=== PATIENT | female | born 1985 | race Caucasian/White ===

== ENCOUNTER → 2017-04-12 | Outpatient (CLI) | payer BC, MEDICAID ==
[2017-04-12 09:18] LABS: CH 30.8; CHCM 32.2; HCT 40.6 % (34.0-46.0); MCH 30.7 pg (25.0-35.0); MCV 96.2 fL (80.0-100.0); Mean Platelet Volume 8.4; RBC 4.22 m/uL (3.80-5.40); RDW 14.4 % (11.5-15.5); WBC 9.7 k/uL (3.8-10.6)
--- NOTE | 2017-04-12 09:35 | US ---
EXAMINATION TYPE: US OB <= 14 wk fetus DATE OF EXAM: 04/12/2017 COMPARISON: NONE CLINICAL HISTORY: Z36 Confirm dates. Confirm Dates, pt has no complaints at this time EXAM PERFORMED: Transabdominal (TA) EXAM MEASUREMENTS: GESTATIONAL AGE / DATING Physician Established: (11 weeks/0 days) EDC: 11/01/2017 Dates by LMP: (11 weeks/0 days) EDC: 11/01/2017 Dates by First Scan: No Prior Dates by Current Scan for: (11 weeks/6 days) EDC: 10/26/2017 MATERNAL ANATOMY Uterus: 12.9 x 8.9 x 10.2 cm Right Ovary: 3.4 x 1.6 x 2.1 cm Left Ovary: 3.3 x 1.7 x 2.4 cm Post CDS / Adnexa: wnl Presence of free fluid: No Presence of subchorionic bleed: No GESTATION / SURVEY CRL: 5.1 cm (11 weeks/6 days) MSD: wnl Heart Rate: 161 bpm Rhythm: Normal IUP: Viable IUP Nuchal Translucency 10-14wks (normal less than 3mm): 1mm IMPRESSION:Single, viable IUP/ No abnormality seen at this time
[2017-04-12 09:39] LABS: Glucose 58 mg/dL (74-99); Non-African American GFR(MDRD) >60 (>60 ml/min/1.73 sqM)
[2017-04-12 18:07] LABS: Treponemal Ab Non-Reactive (Non-Reactive)
== END | disposition home or self-care (01) ==
LOC: RADUSWWP 08:24
PROVIDERS: ATTEND Obstetrics & Gynecology
DX: Z36.9 Encounter for antenatal screening, unspecified (principal); O26.811 Pregnancy related exhaustion and fatigue, first trimester
CPT/HCPCS: 36415; 76801; 76813; 82565; 82947; 85027; 86762; 86780; 86850; 86900; 86901; 87340; 87390

== ENCOUNTER → 2017-06-07 | Outpatient (CLI) | payer MEDICAID ==
--- NOTE | 2017-06-07 11:56 | US ---
EXAMINATION TYPE: US OB anatomy transabd DATE OF EXAM: 06/07/2017 COMPARISON: 04/12/2017 HISTORY: O36.62X0 LARGE FOR DATES TECHNIQUE: Transabdominal (TA) EXAM MEASUREMENTS: GESTATIONAL AGE / DATING Physician Established: (19 weeks/0 days) EDC: 11/01/2017 Dates by LMP: 19 weeks 0 days EDC: 11/01/2017 Dates by First Scan: (20 weeks/0 days) EDC: 10/26/2017 Dates by Current Scan for: (19 weeks/5 days) EDC: 10/27/2017 SURVEY IUP: Single PLACENTA: Anterior PREVIA: No previa CORINA: 13.6 cm CERVICAL LENGTH (transabdominal: norm > 3.0cm): 3.1 cm BIOMETRY PRESENTATION: Breech LIE: Oblique BPD: 4.6 cm 19 weeks / 6 days HC: 17.3 cm 19 weeks / 6 days AC: 15.2 cm 20 weeks / 3 days FL: 3.1 cm 19 weeks / 3 days ESTIMATED WEIGHT IN GRAMS: 324 grams ESTIMATED WEIGHT IN LBS/OZ: 0 lbs. 11 oz. WEIGHT PERCENTAGE BASED ON ESTABLISHED DATE: 93 % HC/AC: 1.1 Normal FL/AC: 20 Normal HEART RATE: 145 bpm RHYTHM: Normal ANATOMY SEEN (within normal limits): * Lateral Vent (< 1 cm) 0.6 cm * Cisterna Magna (< 1.1 cm) 0.4 cm * Nuchal Fold (< 0.6 cm) 0.5 cm * Cerebellum (varies with age) 2.3 cm Choroid Plexus (bilateral) Midline Falx Cavus Septi Pellucidi Four Chamber Heart Outflow tracts: LVOT/RVOT Stomach Situs Nose / Lips Diaphragm Kidneys (bilateral) Bladder Cord Insert Three Vessel Cord Longitudinal Spine Transverse Spine Arms (bilateral) Legs (bilateral) IMPRESSION: Single viable 19 weeks gestation by ultrasound; normal growth parameters
== END | disposition home or self-care (01) ==
LOC: RADUSWWP 09:40
PROVIDERS: ATTEND Obstetrics & Gynecology
DX: O36.62X0 Maternal care for excessive fetal growth, second trimester, not applicable or unspecified (principal); Z3A.19 19 weeks gestation of pregnancy
CPT/HCPCS: 76811

== ENCOUNTER → 2017-07-26 | Outpatient (CLI) | payer MEDICAID ==
[2017-07-26 10:13] LABS: HGB 12.3 gm/dL (11.4-16.0); MCH 31.3 pg (25.0-35.0); MCHC 33.3 g/dL (31.0-37.0); MCV 93.9 fL (80.0-100.0); Mean Platelet Volume 8.1; Platelet Count 168 k/uL (150-450); RBC 3.94 m/uL (3.80-5.40); WBC 12.1 k/uL (3.8-10.6)
== END | disposition home or self-care (01) ==
LOC: LABWHC1 08:53
PROVIDERS: ATTEND Obstetrics & Gynecology
DX: Z34.82 Encounter for supervision of other normal pregnancy, second trimester (principal); Z34.00 Encounter for supervision of normal first pregnancy, unspecified trimester
CPT/HCPCS: 36415; 82950; 85027

== ENCOUNTER → 2017-09-21 | Outpatient (CLI) | payer MEDICAID ==
--- NOTE | 2017-09-22 08:19 | US ---
EXAMINATION TYPE: US OB >= 14 wk fetus DATE OF EXAM: 09/21/2017 COMPARISON: US CLINICAL HISTORY: O36.63X0 Large for dates 3rd trimester TECHNIQUE: Transabdominal (TA) GESTATIONAL AGE / DATING Physician Established: (34 weeks/1 days) EDC: 11/01/2017 Dates by LMP: (34 weeks/1 days) EDC: 11/01/2017 Dates by First Scan: (35 weeks/0 days) EDC: 10/26/2017 Dates by Current Scan: (37 weeks/0 days) EDC: 10/12/2017 SURVEY IUP: Single PLACENTA: Anterior PREVIA: No Previa CORINA: 12.3 cm Normal CERVICAL LENGTH (transabdominal: norm > 3.0cm): 4.3 cm BIOMETRY PRESENTATION: Vertex BPD: 9.3 cm 37 weeks / 4 days HC: 33.2 cm 37 weeks / 6 days AC: 33.6 cm 37 weeks / 4 days FL: 7.2 cm 36 weeks / 5 days ESTIMATED WEIGHT IN GRAMS: 3194 grams ESTIMATED WEIGHT IN LBS/OZ: 7 lbs. 1 oz. WEIGHT PERCENTAGE BASED ON ESTABLISHED DATES: >97% HC/AC: 0.99 Normal FL/AC: 21.3 Normal HEART RATE: 137 bpm RHYTHM: Normal LGA, patient measures 37 weeks 0 days. IMPRESSION: LGA, patient measures 37 weeks 0 days.
== END | disposition home or self-care (01) ==
LOC: RADUSWWP 16:40
PROVIDERS: ATTEND Obstetrics & Gynecology
DX: O36.63X0 Maternal care for excessive fetal growth, third trimester, not applicable or unspecified (principal); Z3A.37 37 weeks gestation of pregnancy
CPT/HCPCS: 76805

== ENCOUNTER → 2017-10-18 | Outpatient (CLI) | payer MEDICAID ==
--- NOTE | 2017-10-18 11:49 | US ---
EXAMINATION TYPE: US OB >= 14 wk fetus DATE OF EXAM: 10/18/2017 COMPARISON: US 04/12/2017, US 06/07/2017, US 09/21/2017 CLINICAL HISTORY: O36.63XO Maternal care for excessive growth, Growth TECHNIQUE: Transabdominal (TA) GESTATIONAL AGE / DATING Physician Established: (38 weeks/0 days) EDC: 11/01/2017 Dates by LMP: (38 weeks/0 days) EDC: 11/01/2017 Dates by First Scan: (38 weeks/6 days) EDC: 10/26/2017 Dates by Current Scan: (38 weeks/3 days) EDC: 10/29/2017 SURVEY IUP: Single PLACENTA: Anterior PREVIA: No Previa CORINA: 13.8 cm Normal CERVICAL LENGTH (transabdominal: norm > 3.0cm): 3.2 cm BIOMETRY PRESENTATION: Vertex LIE: Longitudinal BPD: 9.58 cm 39 weeks / 1 days HC: 34.47 cm 39 weeks / 6 days AC: 34.58 cm 38 weeks / 3 days FL: 7.45 cm 38 weeks / 1 days ESTIMATED WEIGHT IN GRAMS: 3552 grams ESTIMATED WEIGHT IN LBS/OZ: 7 lbs. 13 oz. WEIGHT PERCENTAGE BASED ON ESTABLISHED DATES: 77.8% HC/AC: 1.00 Normal FL/AC: 21.55 Normal HEART RATE: 153 bpm RHYTHM: Normal IMPRESSION: Viable IUP, measurements consistent with established dates.
== END | disposition home or self-care (01) ==
LOC: RADUSWWP 09:00
PROVIDERS: ATTEND Obstetrics & Gynecology
DX: O36.63X0 Maternal care for excessive fetal growth, third trimester, not applicable or unspecified (principal); Z3A.38 38 weeks gestation of pregnancy
CPT/HCPCS: 76805

== ENCOUNTER 2017-10-20 15:16 | Inpatient (IN) | payer MEDICAID ==
[2017-10-20] MEDS ORDERED: OXYTOCIN 10 UNIT/ML 1 ML VIAL IM PRN (18:09)
[2017-10-20] MEDS ORDERED: TERBUTALINE 1 MG/ML VIAL SQ PRN (18:09)
[2017-10-20] MEDS ORDERED: METHYLERGONOVINE 0.2 MG/ML 1 ML AMP IM PRN (18:09)
[2017-10-20] MEDS ORDERED: LIDOCAINE 1% (PF) 10 MG/ML (30 ML SDV) SQ PRN (18:09)
[2017-10-20] MEDS ORDERED: CARBOPROST TROMETHAMINE 250 MCG/ML 1 ML AMP IM PRN (18:09)
[2017-10-20] MEDS ORDERED: AMPICILLIN 2,000 MG in SODIUM CHLORIDE 0.9% 100 ML IVPB STA (18:09)
[2017-10-20] MEDS ORDERED: LACTATED RINGERS 1,000 ML IV SCH (18:15)
[2017-10-20 18:19] VITALS: BMI 32.1
[2017-10-20] MEDS ORDERED: fentaNYL (PF) 50 MCG/ML 5 ML AMP ONE (18:42)
[2017-10-20] MEDS ORDERED: SODIUM CHLORIDE 0.9% 100 ML BAG ONE (18:42)
[2017-10-20] MEDS ORDERED: BUPIVACAINE (PF) 0.25% 30 ML VIAL ONE (18:42)
--- NOTE | 2017-10-20 19:06 | P.HPOB ---
History of Present Illness H&P Date: 10/20/17 Chief Complaint: Contractions. This patient is a pleasant 32-year-old 5 para 2 female estimated gestational age 0711/01/2017 estimated gestational age 38-2/7 weeks gestation who presents to labor and delivery with complaints of regular painful contractions since about 2 AM last night. Patient admission is 3 simmers dilated is now 6 cm dilated in active labor. care has been uncomplicated. Review of Systems Gastrointestinal: Reports heartburn Genitourinary: Reports Menstruation: Reports amenorrhea Past Medical History Past Medical History: No Reported History History of Any Multi-Drug Resistant Organisms: None Reported Additional Past Surgical History / Comment(s): d&c mar 2013 Past Anesthesia/Blood Transfusion Reactions: No Reported Reaction Past Psychological History: No Psychological Hx Reported Smoking Status: Never smoker Past Alcohol Use History: None Reported Past Drug Use History: None Reported - Past Family History Mother Family Medical History: No Reported History Medications and Allergies Home Medications Medication Instructions Recorded Confirmed Type Pnv,Calcium 72/Iron/Folic Acid 1 each PO DAILY 07/09/14 10/20/17 History [Pnv Plus Multivit Tab] Allergies Allergy/AdvReac Type Severity Reaction Status Date / Time No Known Allergies Allergy Verified 12/28/14 22:01 Exam Vital Signs Temp Pulse Resp BP Pulse Ox 10/20/17 16:48 98.3 F 90 17 121/74 98 10/20/17 15:23 98.3 F 90 17 121/74 98 Intake and Output 10/20/17 10/20/17 10/20/17 06:59 14:59 22:59 Other: Weight 92.986 kg - OBG Physical Exam Abdomen: bowel sounds normal, no diffuse tenderness, no bruit present, no guarding noted, no hepatomegaly, no splenomegaly, no mass Vulva: both: normal Vagina: normal moisture, no discharge Cervix: Cervix is 6 cm dilated completely effaced -2 station. Uterus: enlarged Results blood work shows she is A+, rubella immune, RPR nonreactive, hepatitis B negative, HIV negative, ultrasounds have been normal. She'll some 2 days ago that showed to be 7 lbs. 13 oz. Group B strep was negative however she did have a positive group B strep with her first . Assessment and Plan Assessment: This patient is a pleasant 32-year-old 5 para 2 female 38-3/7 weeks gestation presents to labor and delivery complaints of contractions found to be in active labor. Plan is anticipate vaginal delivery. (1) Normal labor and delivery Current Visit: No Status: Acute Code(s): O80 - ENCOUNTER FOR FULL-TERM UNCOMPLICATED DELIVERY SNOMED Code(s): 03196020
[2017-10-20 19:10] LABS: Basophils % (A) 0 %; Eosinophils # (A) 0.1 k/uL (0-0.7); Eosinophils % (A) 0 %; HCT 38.3 % (34.0-46.0); HGB 12.7 gm/dL (11.4-16.0); Lymphocytes # (A) 2.1 k/uL (1.0-4.8); Lymphocytes % (A) 16 %; MCH 30.4 pg (25.0-35.0); MCHC 33.2 g/dL (31.0-37.0); MCV 91.6 fL (80.0-100.0); Mean Platelet Volume 7.9; Monocytes # (A) 0.8 k/uL (0-1.0); Monocytes % (A) 6 %; Neutrophils # (A) 10.4 k/uL (1.3-7.7); Neutrophils % (A) 76 %; Platelet Count 190 k/uL (150-450); RBC 4.18 m/uL (3.80-5.40); RDW 13.1 % (11.5-15.5); WBC 13.7 k/uL (3.8-10.6)
--- NOTE | 2017-10-20 19:13 | P.MSEPDOC ---
Presenting Problems - Arrival Data Date of Arrival on Unit: 10/20/17 Time of Arrival on Unit: 15:16 Mode of Transport: Ambulatory - Complaint OB-Reason for Admission/Chief Complaint: Possible Onset of Labor Comment: pt reports having intermittent contractions since 0200 this morning, denies lof/vb Medical History - Information : 5 Para: 2 Term: 2 : 0 Abortions: Spontaneous or Elective: 2 Number of Living Children: 2 - Gestational Age Gestational Age by NORMAN (wks/days): 38 Weeks and 2 Days - History Comment: hx of gbs + with first delivery Review of Systems - Review of Systems Constitutional: No problems Breast: No problems ENT: No problems Cardiovascular: No problems Respiratory: No problems Gastrointestinal: No problems Genitourinary: No problems Musculoskeletal: No problems Neurological: No problems Skin: No problems Vital Signs - Temperature Temperature: 98.3 F Temperature Source: Temporal Artery Scan - Pulse Right Brachial Pulse Rate: 90 Pulse Assessment Method: Automatic Cuff - Respirations Respiratory Rate: 17 Oxygen Delivery Method: Room Air O2 Sat by Pulse Oximetry: 98 - Blood Pressure Right Arm Blood Pressure: 121/74 Blood Pressure Mean: 89 Blood Pressure Source: Automatic Cuff Medical Screen Scoring (Pre) - Cervical Exam Dilation: 1-3 cm = 1 Effacement: Exam Deferred Membranes: Intact - Uterine Contractions Frequency: > 5 minutes apart = 1 Duration: > 40 seconds = 2 Intensity: N/A - Maternal Vital Signs Maternal Temperature: N/A Maternal Blood Pressure: N/A Signs of Preeclampsia: N/A Maternal Respirations: N/A - Pain Assessment Pain Location and Character: Abdomen Pain Scale Used: Numeric (1 - 10) Pain Intensity: 6 Pain Management Goal: 4 Pain Description: *Acute, Cramping Pain Radiation Location: none Pain Frequency: Intermittent Pain Duration: 12 Pain Duration Units: Hours Pain Behavior: None Exhibited Pain Aggravating Factors: Contractions - Maternal Trauma Maternal Trauma: N/A - Assessment Baseline FHR: 135 Heart Rate - NICHD Category: Category I (Normal) = 0 NST: Reactive Position: N/A Station: N/A - Total Score Total Score (Pre): 4 - Level of Risk Level of Risk: Low (0-5) Physician Notification (Pre) - Physician Notified Physician Notified Date: 10/20/17 Physician Notified Time: 16:48 Physician/Practitioner Notifed:: Dr Burton Spoke With: Dr Burton New Order Received: Yes - Notification Comment Comment: pt to amb in hallway for one hour and then perform vag exam again I agree with the RN Medical Screening Exam: Yes Risk & Benefit of care provided described in d/c instruction: Yes Diagnosis: ENCOUNTER FOR FULL-TERM UNCOMPLICATED DELIVERY
[2017-10-20] MEDS ORDERED: LANOLIN CREAM 5 GM TUBE TOPICAL PRN (19:59)
[2017-10-20] MEDS ORDERED: SIMETHICONE 80 MG CHEWABLE PO PRN (19:59)
[2017-10-20] MEDS ORDERED: HYDROCORTISONE 2.5% RECTAL CREAM 30 GM TUBE RECTAL PRN (19:59)
[2017-10-20] MEDS ORDERED: BENZOCAINE/MENTHOL SPRAY 1 GM/SPRAY AEROSOL TOPICAL PRN (19:59)
[2017-10-20] MEDS ORDERED: ZOLPIDEM 5 MG TAB PO PRN (19:59)
[2017-10-20] MEDS ORDERED: diphenhydrAMINE 50 MG/ML 1 ML VIAL IVP PRN (19:59)
[2017-10-20] MEDS ORDERED: WITCH HAZEL 1 EACH MED..PAD TOPICAL PRN (19:59)
[2017-10-20] MEDS ORDERED: BISACODYL 10 MG SUPP RECTAL PRN (19:59)
[2017-10-20] MEDS ORDERED: diphenhydrAMINE 25 MG CAP PO PRN (19:59)
[2017-10-20] MEDS ORDERED: OXYTOCIN 20 UNITS/1000 ML NS 1,000 ML IV SCH (20:00)
--- NOTE | 2017-10-20 20:02 | P.PROBDLV ---
Vaginal Delivery Note - . Vaginal Delivery Note: Normal spontaneous vaginal delivery viable male infant Apgars 8 and 9 delivery time is 1946 hrs. Please see dictated H&P for intimate details of this patient's admission. Brief summary this is a pleasant 32-year-old 5 para 2 female 38-2/7 weeks gestation admitted to labor and delivery with complaints of contractions found to be in active labor. Patient has epidural placed at 6 cm dilated and then at 7 cm dilated has spontaneous rupture membranes for clear fluid. Labor thereafter progresses quickly and pushes the head to the perineum. The posterior perineum was supported and we have controlled delivery of infant's head over the intact perineum. Mouth and nares are bulb suctioned. There is a loose nuchal cord that she continues to have gentle maternal effort delivered the anterior shoulder and then the posterior shoulder delivered through the nuchal cord. Is a vigorous viable male Apgars are 8 and 9 delivery time is 1946 hrs. has spontaneous respirations and good cry and grossly appears normal. After delivery of the the umbilical cord is loud to quit pulsating then is doubly clamped cut and transected. It appears to be trivascular. The placenta is then spontaneously delivered intact. Estimated blood loss is about 100 mL. Inspection of perineum shows a very small first- degree posterior vaginal laceration is repaired with 3-0 Vicryl usual fashion. Excellent reapproximation is noted. All counts are correct 3. There are no complications. and mother stable delivery room.
[2017-10-20] MEDS: SENNOSIDES-DOCUSATE SODIUM 1 EACH TAB PO SCH (21:43)
[2017-10-20] MEDS: IBUPROFEN 600 MG TAB PO PRN (21:43)
[2017-10-20] MEDS ORDERED: AMPICILLIN 1,000 MG in SODIUM CHLORIDE 0.9% 50 ML IVPB SCH (23:00)
[2017-10-21] MEDS: ACETAMINOPHEN TAB 325 MG TAB PO PRN ×2 (03:08→10:57)
--- NOTE | 2017-10-21 07:01 | P.PNOBGVD ---
Subjective - Subjective Patient reports: Reports appetite normal, Reports voiding normally, Reports pain well controlled, Reports ambulating normally : doing well Objective - Latest Vital Signs Latest vital signs: Vital Signs Temp Pulse Resp BP Pulse Ox 10/21/17 04:00 97.8 F 75 16 114/71 10/21/17 00:00 98 F 78 16 105/62 10/20/17 21:49 98.1 F 93 16 119/56 10/20/17 21:19 95 16 123/67 10/20/17 20:49 98 16 139/74 10/20/17 20:34 91 16 122/61 10/20/17 20:19 88 16 130/60 10/20/17 20:04 103 H 16 132/65 10/20/17 19:49 97.9 F 94 16 137/66 10/20/17 19:13 98.3 F 90 17 121/74 98 10/20/17 16:48 98.3 F 90 17 121/74 98 10/20/17 15:23 98.3 F 90 17 121/74 98 Intake and Output 10/20/17 10/21/17 10/21/17 22:59 06:59 14:59 Output Total 150 Balance -150 Output: Estimated Blood Loss 150 Other: # Voids 1 Weight 92.986 kg - Exam Lungs: bilateral: normal Chest: Normal S1, Normal S2 Extremities: Present: normal Abdomen: Present: normal appearance, soft Uterus: Present: normal, firm - Labs Labs: Abnormal Lab Results - Last 24 Hours (Table) 10/20/17 Range/Units 18:20 WBC 13.7 H (3.8-10.6) k/uL Neutrophils # 10.4 H (1.3-7.7) k/uL Assessment and Plan Assessment: Post day #1. Patient is resting without complaints and she may want to go home today. Vital signs are stable and she is afebrile. Uterus is firm nontender and she is having normal lochia. My impression this is a normal post course. Plan is to continue routine care and she may discharge home later tonight or tomorrow morning. (1) Normal labor and delivery Current Visit: No Status: Acute Code(s): O80 - ENCOUNTER FOR FULL-TERM UNCOMPLICATED DELIVERY SNOMED Code(s): 12769257
--- NOTE | 2017-10-21 07:04 | P.DS ---
Providers Date of admission: 10/20/17 18:05 Expected date of discharge: 10/21/17 Attending physician: Jefferson Burton Primary care physician: Jefferson Burton - Discharge Diagnosis(es) (1) Normal labor and delivery Current Visit: No Status: Acute Hospital Course: Please see dictated H&P for intimate details of this patient's admission. Brief summary this is a pleasant 32-year-old 5 para 2 female estimated gestational age 38-2/7 weeks who presents to labor and delivery with complaints of contractions found to be in active labor. Patient quickly goes on to have a vaginal delivery viable male infant. Please see dictated delivery note. day 1 patient without complaints and wishes to go home. Patient's felt stable for discharge home follow up with me in 6 weeks. Procedures: Normal spontaneous vaginal delivery. Patient Condition at Discharge: Good Plan - Discharge Summary New Discharge Prescriptions: No Action Pnv,Calcium 72/Iron/Folic Acid [Pnv Plus Multivit Tab] 1 each PO DAILY Discharge Medication List Pnv,Calcium 72/Iron/Folic Acid [Pnv Plus Multivit Tab] 1 each PO DAILY 07/09/14 [History] Follow up Appointment(s)/Referral(s): Jefferson Burton MD [Primary Care Provider] - 6 Weeks Patient Instructions/Handouts: Vaginal Delivery (DC) Activity/Diet/Wound Care/Special Instructions: No intercourse or anything per vagina for 6 weeks. Please call if any fever, chills, excessive vaginal bleeding, and/or abdominal pain. Discharge Disposition: HOME SELF-CARE
[2017-10-21] MEDS: IBUPROFEN 600 MG TAB PO PRN ×3 (07:55→20:35)
[2017-10-21] MEDS: SENNOSIDES-DOCUSATE SODIUM 1 EACH TAB PO SCH ×2 (07:55→20:45)
[2017-10-21 16:37] VITALS: BP 106/72; PULSE 80; RESP 16; TEMP 97.7
== END 2017-10-21 20:45 | disposition home or self-care (01) | DRG 775 ==
LOC: FBPOP 15:16 → 4FBP 18:05
PROVIDERS: ADMIT Obstetrics & Gynecology; ATTEND Obstetrics & Gynecology
PROC: 3E0R3NZ Introduction of Analgesics, Hypnotics, Sedatives into Spinal Canal, Percutaneous Approach (ICD-10-PCS; principal; 2017-10-20)
PROC: 00HU33Z Insertion of Infusion Device into Spinal Canal, Percutaneous Approach (ICD-10-PCS; principal; 2017-10-20)
PROC: 10E0XZZ Delivery of Products of Conception, External Approach (ICD-10-PCS; principal; 2017-10-20)
PROC: 0HQ9XZZ Repair Perineum Skin, External Approach (ICD-10-PCS; principal; 2017-10-20)
DX: O70.0 First degree perineal laceration during delivery (principal); O69.81X0 Labor and delivery complicated by cord around neck, without compression, not applicable or unspecified; Z37.0 Single live birth; Z3A.38 38 weeks gestation of pregnancy
CPT/HCPCS: 85025

== ENCOUNTER 2020-09-02 17:35 | Emergency (ER) | payer MEDICAID ==
[2020-09-02 17:41] VITALS: BP 123/79; PULSE 83; RESP 18; TEMP 98
[2020-09-02] MEDS ORDERED: SODIUM CHLORIDE 0.9% 500 ML 500 ML IV STA (17:56)
--- NOTE | 2020-09-02 18:22 | ED ---
Abdominal Pain HPI - General Source: patient Mode of arrival: ambulatory Limitations: no limitations <Maren Eason - Last Filed: 09/02/20 18:19> <Eliseo Prather - Last Filed: 09/02/20 19:55> - General Chief Complaint: Abdominal Pain Stated Complaint: L Side Pain Time Seen by Provider: 09/02/20 17:42 - History of Present Illness Initial Comments: Patient is a 35-year-old female presenting to the emergency Department with complaints of left flank pain that been intermittent over the past 4 days. She states she noticed that on Sunday, in her left flank area, is very sharp in nature, she could not get comfortable. She states over the last 3 days the pain has been coming and going, very sharp at times. She takes ibuprofen today which seemed to help a little bit but she still very uncomfortable. There is some mild radiation towards her left lower quadrant. She denies any fevers or chills, no dysuria or hematuria. She denies any nausea or vomiting, no diarrhea. She denies history of kidney stones, diverticulitis. She's been having regular bowel movements, she denies being secondary to having vasectomy. She denies history of abdominal surgeries. She has no further complaints at this time. Upon arrival to the ER her vitals are stable. (Maren Eason) - Related Data Home Medications Medication Instructions Recorded Confirmed Pnv,Calcium 72/Iron/Folic Acid 1 each PO DAILY 07/09/14 10/20/17 [Pnv Plus Multivit Tab] Previous Rx's Medication Instructions Recorded Ibuprofen [Motrin] 600 mg PO Q6HR PRN #40 tab 10/21/17 Cyclobenzaprine [Flexeril] 10 mg PO TID #14 tab 09/02/20 Lidocaine 5% Patch [Lidoderm 5% 1 patch TOPICAL DAILY PRN 5 Days 09/02/20 Patch] #5 patch Allergies Allergy/AdvReac Type Severity Reaction Status Date / Time No Known Allergies Allergy Verified 12/28/14 22:01 Review of Systems ROS Other: All systems not noted in ROS Statement are negative. <Maren Eason - Last Filed: 09/02/20 18:19> ROS Other: All systems not noted in ROS Statement are negative. <Eliseo Prather - Last Filed: 09/02/20 19:55> ROS Statement: Those systems with pertinent positive or pertinent negative responses have been documented in the HPI. Past Medical History Past Medical History: No Reported History History of Any Multi-Drug Resistant Organisms: None Reported Past Surgical History: No Surgical Hx Reported Additional Past Surgical History / Comment(s): d&c mar 2013 Past Anesthesia/Blood Transfusion Reactions: No Reported Reaction Past Psychological History: No Psychological Hx Reported Smoking Status: Never smoker Past Alcohol Use History: None Reported Past Drug Use History: None Reported - Past Family History Mother Family Medical History: No Reported History <Maren Eason - Last Filed: 09/02/20 18:19> General Exam Limitations: no limitations <Maren Eason - Last Filed: 09/02/20 18:19> - General Exam Comments Initial Comments: GENERAL: Patient is well-developed and well-nourished. Patient is nontoxic and in no acute distress. HEAD: Atraumatic, normocephalic. EYES: Pupils equal round and reactive to light, extraocular movements intact, sclera anicteric, conjunctiva are normal. Eyelids were unremarkable. ENT: TMs normal, nares patent, oropharynx clear without exudates. Moist mucous membranes. NECK: Normal range of motion, supple without lymphadenopathy or JVD. LUNGS: Unlabored respirations. Breath sounds clear to auscultation bilaterally and equal. No wheezes rales or rhonchi. HEART: Regular rate and rhythm without murmurs, rubs or gallops. ABDOMEN: Soft, very mild tenderness noted left-sided the abdomen, normoactive bowel sounds. No guarding, no rebound. No masses appreciated. : Deferred MUSCULOSKELETAL: Normal extremities with adequate strength and normal range of motion, no pitting or edema. No clubbing or cyanosis. NEUROLOGICAL: Patient is alert and oriented x 3. Motor and sensory are also intact. Cranial nerves II through XII grossly intact. Symmetrical smile. Normal speech, normal gait. PSYCH: Normal mood, normal affect. SKIN: Warm, Dry, normal turgor, no rashes or lesions noted. (Maren Eason) Course Vital Signs 09/02/20 17:38 Temperature 98.0 F Pulse Rate 83 Respiratory 18 Rate Blood Pressure 123/79 O2 Sat by Pulse 99 Oximetry Medical Decision Making <Maren Eason - Last Filed: 09/02/20 18:19> - Lab Data Result diagrams: 09/02/20 18:13 09/02/20 18:13 <Eliseo Prather - Last Filed: 09/02/20 19:55> - Medical Decision Making Patient is a 35-year-old female here for left flank pain intermittent for the last 4 days. States some mild radiation towards left lower quadrant. No history of kidney stones or diverticulitis. No fevers, her vitals are stable. (Maren Eason) I did reevaluate patient. She reports that she has had this pain for 4 days. Reports that it is worse with certain movements. Patient states that movement such as raising her arms to do her hair causes pain. She reports that going down to CAT scan and raising her arms causes the pain to worsen as well. She denies abdominal pain. Denies fevers. Denies dysuria. Laboratory evaluation was obtained which appeared unremarkable. Possibly slight dehydration however patient given a liter of fluid. HCG negative. Urinalysis does not show any evidence of infection or hematuria. CT abdomen and pelvis report an image was reviewed. No acute finding noted. On my reevaluation patient has just back into her scrubs and is ready for discharge. She states the pain is tolerable this time and she would like to leave work. I suspect that pain is musculoskeletal in nature. Discussed following up with her doctor. She will return for any worsening symptoms. We will try lidocaine patches and muscle relaxers for nighttime. (Eliseo Prather) - Lab Data Lab Results 09/02/20 09/02/20 09/02/20 Range/Units 18:13 18:13 18:13 WBC 9.4 (3.8-10.6) k/uL RBC 4.60 (3.80-5.40) m/uL Hgb 14.2 (11.4-16.0) gm/dL Hct 43.1 (34.0-46.0) % MCV 93.6 (80.0-100.0) fL MCH 30.8 (25.0-35.0) pg MCHC 32.9 (31.0-37.0) g/dL RDW 12.6 (11.5-15.5) % Plt Count 198 (150-450) k/uL MPV 7.8 Neutrophils % 63 % Lymphocytes % 28 % Monocytes % 6 % Eosinophils % 1 % Basophils % 0 % Neutrophils # 6.0 (1.3-7.7) k/uL Lymphocytes # 2.7 (1.0-4.8) k/uL Monocytes # 0.5 (0-1.0) k/uL Eosinophils # 0.1 (0-0.7) k/uL Basophils # 0.0 (0-0.2) k/uL Sodium (137-145) mmol/L Potassium (3.5-5.1) mmol/L Chloride (98-107) mmol/L Carbon Dioxide (22-30) mmol/L Anion Gap mmol/L BUN (7-17) mg/dL Creatinine (0.52-1.04) mg/dL Est GFR (CKD-EPI)AfAm (>60 ml/min/1.73 sqM) Est GFR (CKD-EPI)NonAf (>60 ml/min/1.73 sqM) Glucose (74-99) mg/dL Calcium (8.4-10.2) mg/dL Total Bilirubin (0.2-1.3) mg/dL AST (14-36) U/L ALT (4-34) U/L Alkaline Phosphatase (38-126) U/L Total Protein (6.3-8.2) g/dL Albumin (3.5-5.0) g/dL Lipase (23-300) U/L Urine Color Yellow Urine Appearance Clear (Clear) Urine pH 5.5 (5.0-8.0) Ur Specific [place] 1.021 (1.001-1.035) Urine Protein Negative (Negative) Urine Glucose (UA) Negative (Negative) Urine Ketones Negative (Negative) Urine Blood Negative (Negative) Urine Nitrite Negative (Negative) Urine Bilirubin Negative (Negative) Urine Urobilinogen <2.0 (<2.0) mg/dL Ur Leukocyte Esterase Negative (Negative) Urine HCG, Qual Not Detected (Not Detectd) 09/02/20 Range/Units 18:13 WBC (3.8-10.6) k/uL RBC (3.80-5.40) m/uL Hgb (11.4-16.0) gm/dL Hct (34.0-46.0) % MCV (80.0-100.0) fL MCH (25.0-35.0) pg MCHC (31.0-37.0) g/dL RDW (11.5-15.5) % Plt Count (150-450) k/uL MPV Neutrophils % % Lymphocytes % % Monocytes % % Eosinophils % % Basophils % % Neutrophils # (1.3-7.7) k/uL Lymphocytes # (1.0-4.8) k/uL Monocytes # (0-1.0) k/uL Eosinophils # (0-0.7) k/uL Basophils # (0-0.2) k/uL Sodium 140 (137-145) mmol/L Potassium 4.2 (3.5-5.1) mmol/L Chloride 105 (98-107) mmol/L Carbon Dioxide 25 (22-30) mmol/L Anion Gap 10 mmol/L BUN 19 H (7-17) mg/dL Creatinine 0.66 (0.52-1.04) mg/dL Est GFR (CKD-EPI)AfAm >90 (>60 ml/min/1.73 sqM) Est GFR (CKD-EPI)NonAf >90 (>60 ml/min/1.73 sqM) Glucose 92 (74-99) mg/dL Calcium 9.8 (8.4-10.2) mg/dL Total Bilirubin 0.3 (0.2-1.3) mg/dL AST 20 (14-36) U/L ALT 14 (4-34) U/L Alkaline Phosphatase 42 (38-126) U/L Total Protein 7.3 (6.3-8.2) g/dL Albumin 4.3 (3.5-5.0) g/dL Lipase 145 (23-300) U/L Urine Color Urine Appearance (Clear) Urine pH (5.0-8.0) Ur Specific [place] (1.001-1.035) Urine Protein (Negative) Urine Glucose (UA) (Negative) Urine Ketones (Negative) Urine Blood (Negative) Urine Nitrite (Negative) Urine Bilirubin (Negative) Urine Urobilinogen (<2.0) mg/dL Ur Leukocyte Esterase (Negative) Urine HCG, Qual (Not Detectd) Disposition <Maren Eason - Last Filed: 09/02/20 18:19> Is patient prescribed a controlled substance at d/c from ED?: No Time of Disposition: 19:53 <Eliseo Prather P - Last Filed: 09/02/20 19:55> Clinical Impression: Flank pain Disposition: HOME SELF-CARE Condition: Good Instructions (If sedation given, give patient instructions): Flank Pain (ED) Additional Instructions: Please take Motrin and Tylenol for pain. Use lidocaine patch as needed. Apply for 12 hours and then remove for 12 hours before applying another. Take muscle relaxer as long as you are not working or driving. Follow-up with primary care. If you have worsening symptoms return to the emergency room. Prescriptions: Cyclobenzaprine [Flexeril] 10 mg PO TID #14 tab Lidocaine 5% Patch [Lidoderm 5% Patch] 1 patch TOPICAL DAILY PRN 5 Days #5 patch PRN Reason: Pain Referrals: Jason Draper MD [STAFF PHYSICIAN] - 1-2 days
[2020-09-02 18:41] LABS: Basophils % (A) 0 %; Eosinophils # (A) 0.1 k/uL (0-0.7); Eosinophils % (A) 1 %; HCT 43.1 % (34.0-46.0); HGB 14.2 gm/dL (11.4-16.0); Lymphocytes # (A) 2.7 k/uL (1.0-4.8); Lymphocytes % (A) 28 %; MCH 30.8 pg (25.0-35.0); MCHC 32.9 g/dL (31.0-37.0); MCV 93.6 fL (80.0-100.0); Mean Platelet Volume 7.8; Monocytes # (A) 0.5 k/uL (0-1.0); Monocytes % (A) 6 %; Neutrophils % (A) 63 %; Platelet Count 198 k/uL (150-450); RDW 12.6 % (11.5-15.5); WBC 9.4 k/uL (3.8-10.6)
[2020-09-02 18:47] LABS: Appearance,Urine Clear (Clear); Bilirubin,Urine Negative (Negative); Blood,Urine Negative (Negative); Color,Urine Yellow; Glucose,Urine (UA) Negative (Negative); Ketones,Urine Negative (Negative); Leukocyte Esterase,Urine Negative (Negative); Nitrite,Urine Negative (Negative); PH, Urine 5.5 (5.0-8.0); Protein,Urine Negative (Negative); Specific Gravity,Urine 1.021 (1.001-1.035); Urobilinogen,Urine <2.0 mg/dL (<2.0)
[2020-09-02 18:55] LABS: ALT 14 U/L (4-34); AST 20 U/L (14-36); African American GFR (CKD) >90 (>60 ml/min/1.73 sqM); Albumin 4.3 g/dL (3.5-5.0); Alkaline Phosphatase 42 U/L (38-126); Anion Gap 10 mmol/L; Blood Urea Nitrogen 19 mg/dL (7-17); Calcium 9.8 mg/dL (8.4-10.2); Carbon Dioxide 25 mmol/L (22-30); Chloride 105 mmol/L (98-107); Glucose 92 mg/dL (74-99); Lipase 145 U/L (23-300); Non-African American GFR(CKD) >90 (>60 ml/min/1.73 sqM); Potassium 4.2 mmol/L (3.5-5.1); Sodium 140 mmol/L (137-145); Total Bilirubin 0.3 mg/dL (0.2-1.3); Total Protein 7.3 g/dL (6.3-8.2)
--- NOTE | 2020-09-02 19:29 | CT ---
EXAMINATION TYPE: CT abdomen pelvis wo con DATE OF EXAM: 09/02/2020 COMPARISON: HISTORY: left flank pain CT DLP: 586.9 mGycm Automated exposure control for dose reduction was used. TECHNIQUE: Helical acquisition of images was performed from the lung bases through the pelvis. FINDINGS: The limited sensitivity of CT without IV/oral contrast is noted, the following observations are made: LUNG BASES: No acute findings. Pectus excavatum anatomic variant noted. LIVER/GB: No significant abnormality is appreciated. PANCREAS: No significant abnormality is seen. SPLEEN: No significant abnormality is seen. ADRENALS: No significant abnormality is seen. KIDNEYS: No hydronephrosis. There is a 1 mm nonobstructing calcification in the posterior parenchyma of the lower pole left kidney. There are no other calcifications. There is no hydroureter. PERITONEAL CAVITY: Slight volume of dependent peritoneal fluid seen in the pelvic cul-de-sac, likely functional. EXTRAPERITONEAL SPACES: Negative RETROPERITONEAL ADENOPATHY: None visualized REPRODUCTIVE ORGANS: No acute findings. Retroverted/retroflexed uterus noted, tilting just right of m idline URINARY BLADDER: No significant abnormality is seen. Distal ureters unremarkable. PELVIC ADENOPATHY: None visualized. OSSEOUS STRUCTURES: No significant abnormality is seen. BOWEL: No significant abnormality is seen. Cecum is in the right lower quadrant, with the appendix i n retrocecal position rising cephalad to have its tip at the level of the right superior iliac crest. IMPRESSION: No acute radiographic process; findings as discussed.
[2020-09-02] MEDS ORDERED: LIDOCAINE 5% PATCH TOPICAL STA (19:41)
== END 2020-09-02 20:04 | disposition home or self-care (01) ==
LOC: EC 17:35
DX: R10.9 Unspecified abdominal pain (principal)
CPT/HCPCS: 36415; 74176; 80053; 81003; 81025; 83690; 85025; 96360; 96361; 99284